=== PATIENT | female | born 1980 | race Caucasian/White ===

== ENCOUNTER → 2016-11-17 | Outpatient (CLI) | payer OTHER | END | disposition home or self-care (01) | LOC: RADECHMAIN 11:48 | PROVIDERS: ATTEND Family Medicine | DX: I49.3 Ventricular premature depolarization (principal) | CPT/HCPCS: 93270; 93271 ==

== ENCOUNTER → 2016-12-08 | Outpatient (CLI) | payer OTHER ==
[2016-12-11 06:30] LABS: Lipoprotein A <5 mg/dL (0-30)
[2016-12-11 07:42] LABS: Mis test requested (Blood) Lp-PLA2 Activity
== END | disposition home or self-care (01) ==
LOC: LABWHC1 11:05
PROVIDERS: ATTEND Internal Medicine Cardiovascular Disease
DX: R07.9 Chest pain, unspecified (principal); R06.00 Dyspnea, unspecified; R60.9 Edema, unspecified; Z82.49 Family history of ischemic heart disease and other diseases of the circulatory system
CPT/HCPCS: 36415; 81241; 81291; 81401; 82306; 83695; 83698; 83704; 84439; 84443; 84481; 85210; 85379; 86141

== ENCOUNTER → 2018-06-29 | Outpatient (CLI) | payer BC ==
--- NOTE | 2018-06-29 16:00 | US ---
EXAMINATION TYPE: US venous doppler duplex LE LT DATE OF EXAM: 06/29/2018 2:38 PM COMPARISON: NONE CLINICAL HISTORY: R22.42 swelling, mass and lump, left lower. No hx of blood clots. No blood thinner s. Burning achy leg. SIDE PERFORMED: Left TECHNIQUE: The lower extremity deep venous system is examined utilizing real time linear array sonog monica with graded compression, doppler sonography and color-flow sonography. VESSELS IMAGED: External Iliac Vein (EIV) Common Femoral Vein Deep Femoral Vein Greater Saphenous Vein * Femoral Vein Popliteal Vein Small Saphenous Vein * Proximal Calf Veins (* superficial vessels) Left Leg: Negative for DVT IMPRESSION: No evidence for DVT at this time.
== END | disposition home or self-care (01) ==
LOC: RADUSWWP 14:06
PROVIDERS: ATTEND Family Medicine
DX: R22.42 Localized swelling, mass and lump, left lower limb (principal)

== ENCOUNTER → 2018-07-07 | Outpatient (CLI) | payer BC ==
--- NOTE | 2018-07-07 10:37 | US ---
EXAMINATION TYPE: US extremity nonvasc mass LT DATE OF EXAM: 07/07/2018 COMPARISON: NONE CLINICAL HISTORY: 38-year-old female M79.662,Pain in left lower leg R22.42 Localized swelling. TECHNIQUE: Targeted ultrasound examination of the left lower posterior thigh at the site of patient's swelling. FINDINGS: Surfacer notes: Area marked by patient. Sagittal and transverse scan encompassing indicated lump a nd surrounding area reveals no salivary cystic lesion or abnormal fluid collection. IMPRESSION: Targeted scanning of the left lower posterior thigh at the site of patient indicated swelling. No dis crete sonographic abnormality of the superficial tissues identified. Further clinical correlation rec ommended.
== END | disposition home or self-care (01) ==
LOC: RADUSWWP 09:41
PROVIDERS: ATTEND Family Medicine
DX: R22.42 Localized swelling, mass and lump, left lower limb (principal)